=== PATIENT | male | born 1970 | race African-American/Black ===

== ENCOUNTER 2022-08-07 03:58 | Emergency (ER) | payer MEDICAID ==
[~2022-08-07] VITALS: Ht 177.8 cm; Wt 70.0 kg
[2022-08-07] MEDS ORDERED: METHYLPREDNISOLONE SOD SUCC 125 MG/2 ML VIAL IV STA (04:12)
[2022-08-07] MEDS ORDERED: MAGNESIUM 2 G PREMIX 50 ML IV STA (04:12)
[2022-08-07] MEDS ORDERED: ALBUTEROL (0.083%) 2.5MG/3ML NEB HHN STA (04:12)
[2022-08-07] MEDS ORDERED: IPRATROPIUM BROMIDE (0.02%) 0.5MG/2.5ML NEB HHN STA (04:12)
[2022-08-07] MEDS ORDERED: ASPIRIN 81MG TABLET PO ONE (04:15)
[2022-08-07 05:16] LABS: BASOPHILS % 1.2 % (0.0-2.0); EOSINOPHILS % 11.1 % (0.0-5.0); HEMOGLOBIN. 10.3 g/dL (14.0-18.0); LYMPHOCYTES % 34.2 % (20.0-50.0); MEAN CORPUSCULAR HEMOGLOBIN 22.6 pg (28.0-32.0); MEAN CORPUSCULAR VOLUME 72.3 fL (80.0-94.0); MEAN PLATELET VOLUME 8.5 fl (7.4-10.4); MONOCYTES % 10.7 % (2.0-8.0); NEUTROPHILS % 42.8 % (40.0-76.0); PLATELET 416 x1000/uL (130-400); RED BLOOD CELL COUNT 4.57 mill/uL (4.7-6.1); RED CELL DISTRIBUTION WIDTH 18.9 % (11.6-14.6)
[2022-08-07 05:38] LABS: CHLORIDE 108 mEq/L (98-107)
[2022-08-07 05:54] LABS: ETHANOL BLOOD < 10 mg/dL
[2022-08-07 07:37] VITALS: BP 118/69
[2022-08-07] MEDS ORDERED: ALBU6.7H9 INH (08:24)
[2022-08-07] MEDS ORDERED: P50 PO (08:24)
[2022-08-07] MEDS ORDERED: ALBU05 NEB (08:24)
== END 2022-08-07 09:05 | disposition home or self-care (01) ==
LOC: ER 03:58
DX: J45.901 Unspecified asthma with (acute) exacerbation (principal); Z77.22 Contact with and (suspected) exposure to environmental tobacco smoke (acute) (chronic); D64.9 Anemia, unspecified
CPT/HCPCS: 36415; 71045; 80053; 80320; 83880; 84484; 85025; 93005; 94644; 96365; 96375; 99285; J2930; J3475; Z7610; G0480